=== PATIENT | male | born 1965 | race Caucasian/White ===

== ENCOUNTER → 2016-12-24 | Outpatient (CLI) | payer OTHER ==
[~2016-12-24] VITALS: Ht 170.2 cm; Wt 119.1 kg
[~2016-12-24] MED LIST: ASPI81TA23 PO; CARV12.52 PO; CHLORHEXIDINE GLUCONATE 2 % 1 PACK (2 CLOTHS) TOPICAL PRN; CHOL500022 PO; FAMO20TA2 PO; LACTATED RINGER'S 1000 ML IV PRN; LIDOCAINE HCL 1% PF 5 ML AMPULE OTHER ONE; LIPI20TA PO; LISI-357 PO; LISI-515 PO; LORT5TAB PO; METOPROLOL TARTRATE 25 MG TAB PO PRN; MULTTAB67 PO; POVIDONE IODINE 5% (ANTISEPSIS KIT) 4 APPLICATIONS EACH NARE PRN; PRAS10TA PO; PROPOFOL 200 MG/20 ML AMP IV ONE; SODIUM CHLORID 0.9% 500 ML IV PRN
--- NOTE | 2016-12-24 13:11 | GIPROC ---
[facility] [address] [facility]. [facility] [place], [address] EGD PROCEDURE REPORT EXAM DATE: 12/24/2016 PATIENT NAME: Abdirahman Brewer MR #: [id number] BIRTHDATE: 1965 ATTENDING: Robbin Hercules MD ORDER #: [id number] TELECOM ENGINEER: Jeanette Goodwin Jones, Julie, and Tori Resendiz STATUS: outpatient INDICATIONS: The patient is a 51 yr old male here for an EGD due to heartburn PROCEDURE PERFORMED: EGD w/ biopsy MEDICATIONS: Per Anesthesia and None. TOPICAL ANESTHETIC: none CONSENT: The patient understands the risks and benefits of the procedure and understands that these risks include, but are not limited to: sedation, allergic reaction, infection, perforation and/or bleeding. Alternative means of evaluation and treatment include, among others: physical exam, x-rays, and/or surgical intervention. The patient elects to proceed with this endoscopic procedure. medical equipment was checked for proper function. Hand hygiene and appropriate measures for infection prevention was taken. After the risks, benefits and alternatives of the procedure were thoroughly explained, Informed consent was verified, confirmed and timeout was successfully executed by the treatment team. The patient was anesthetized with anesthesia and the Pentax EG-[id number] endoscope was introduced through the mouth and advanced to the first portion of the duodenum. Antrum noted to have mild gastritis. Antrum was biopsied for h. Pylori. Retroflexed views revealed no abnormalities The gastroscope was then slowly withdrawn and removed. STOMACH: There was mild gastritis in the gastric antrum. ADVERSE EVENTS: There were no complications. IMPRESSIONS: 1. There was mild gastritis in the gastric antrum 2. Retroflexed views revealed no abnormalities RECOMMENDATIONS: 1. Start PPI 2. Await biopsy results. Biopsy results will not be ready for 7-10 days. If you don't hear from us in two weeks, call our office for biopsy results. PATIENT CONDITION: fair DISPOSITION: Home REPEAT EXAM: NONE Robbin Hercules MD eSigned: Robbin Hercules MD 12/24/2016 1:11 PM cc: jemima Hercules MD
[2016-12-24 13:43] VITALS: BP 130/83; PULSE 62; RESP 20; TEMP 97; O2SAT 94
--- NOTE | 2016-12-24 17:55 | EKG ---
Date Performed: 12/24/2016 Time Performed: 11:21:30 PTAGE: 51 years EKG: SINUS BRADYCARDIA WITH FIRST DEGREE AV BLOCK VOLTAGE CRITERIA FOR LVH POSSIBLE SEPTAL MYOCA RDIAL INFARCTION , OF INDETERMINATE AGE ABNORMAL ECG NO PREVIOUS TRACING DOCTOR: Faizan Reza Interpretating Date/Time 12/24/2016 17:54:54
== END ==
LOC: HSDC 10:39
PROVIDERS: ATTEND Surgery
DX: Z01.818 Encounter for other preprocedural examination (principal); E66.01 Morbid (severe) obesity due to excess calories; Z68.41 Body mass index [BMI] 40.0-44.9, adult; K29.70 Gastritis, unspecified, without bleeding; R12 Heartburn; I10 Essential (primary) hypertension
CPT/HCPCS: 88305; 88312; 93005